=== PATIENT | female | born 1975 | race Caucasian/White ===

== ENCOUNTER 2018-07-30 07:29 | Emergency (ER) | payer BC, MEDICARE ==
[2018-07-30] MEDS ORDERED: Sodium Chloride 0.9% 10 ML Syringe FLUSH PRN (08:04)
[2018-07-30] MEDS ORDERED: Metoclopramide 10 MG/2 ML SDV IVPUSH ONE (08:05)
[2018-07-30] MEDS ORDERED: diphenhydrAMINE 50 MG/ML SDV IVPUSH ONE (08:05)
[2018-07-30] MEDS ORDERED: Sodium Chloride 0.9% 500 ML IV ONE (08:06)
--- NOTE | 2018-07-30 08:16 | EDM.PDOC ---
ED HPI GENERAL MEDICAL PROBLEM - General Chief Complaint: General Stated Complaint: HEADACHE AND NOT FEELING WELL FOR 4 DAYS Time Seen by Provider: 07/30/18 07:49 Source of Information: Reports: Patient, RN Notes Reviewed - History of Present Illness INITIAL COMMENTS - FREE TEXT/NARRATIVE: 43-year-old female with onset of headache 4 days ago. She states this actually woke her up during the night around 4 AM 4 days ago. Headache has continued since that time. She does get relief with ibuprofen but then the headache does come back. As had some mild nausea with this. There's been no vomiting. No cough sore throat fever or chills. She states she typically does not get headaches so this is unusual for her. He describes this as an achy and pressure type feeling more so left and posterior aspect of her head. She does have history of breast cancer. She has had appropriate treatment and has been cancer free. She has had no focal weakness, speech or vision difficulty. Generalized Pain Score (Numeric/FACES): 3 - Related Data Allergies Allergy/AdvReac Type Severity Reaction Status Date / Time azithromycin Allergy Severe Difficulty Verified 07/30/18 07:58 Swallowing Home Meds: Home Meds Adalimumab [Humira] 40 mg SQ WEEKLY 07/30/18 [History] Citalopram [Citalopram HBr] 20 mg PO DAILY 07/30/18 [History] Gabapentin [Neurontin] 300 mg PO QPM 07/30/18 [History] Past Medical History Psychiatric History: Reports: Anxiety, Depression Oncologic (Cancer) History: Reports: Breast Social & Family History - Tobacco Use Smoking Status *Q: Never Smoker Second Hand Smoke Exposure: No - Caffeine Use Caffeine Use: Reports: None - Recreational Drug Use Recreational Drug Use: No ED ROS GENERAL - Review of Systems Review Of Systems: See Below Constitutional: Denies: Fever, Chills, Diaphoresis HEENT: Denies: Ear Pain, Sinus Problem, Throat Pain Respiratory: Denies: Shortness of Breath Cardiovascular: Denies: Chest Pain GI/Abdominal: Reports: Nausea. Denies: Abdominal Pain, Vomiting Musculoskeletal: Reports: Neck Pain (Mild intermittent). Denies: Shoulder Pain , Arm Pain, Back Pain Skin: Reports: No Symptoms Neurological: Reports: Headache. Denies: Dizziness, Numbness, Tingling, Trouble Speaking, Difficulty Walking, Weakness ED EXAM, GENERAL - Physical Exam Exam: See Below General Appearance: Alert, Mild Distress Throat/Mouth: Normal Inspection, Normal Oropharynx Head: Atraumatic. No: Facial Swelling Neck: Supple, Full Range of Motion, Lymphadenopathy (L), Lymphadenopathy (R) ( Mild anterior) Respiratory/Chest: No Respiratory Distress ( mild anterior), Lungs Clear, Normal Breath Sounds Cardiovascular: Regular Rate, Rhythm Extremities: Normal Inspection, Normal Range of Motion Neurological: Alert, Oriented, No Motor/Sensory Deficits, Other (Finger to nose testing normal) Skin Exam: Warm, Dry, Normal Color Course - Vital Signs Last Recorded V/S: Last Vital Signs Temp 97.4 F 07/30/18 07:41 Pulse 99 07/30/18 07:41 Resp 17 07/30/18 07:41 BP 130/84 07/30/18 07:41 Pulse Ox 0 L 07/30/18 07:41 - Orders/Labs/Meds Orders: Active Orders 24 hr Category Date Time Status Peripheral IV Care [RC] . DIRECTED Care 07/30/18 08:05 Active Head wo Cont [CT] Stat Exams 07/30/18 08:04 Taken Sodium Chloride 0.9% [Saline Flush] Med 07/30/18 08:04 Active 10 ml FLUSH ASDIRECTED PRN Peripheral IV Insertion Adult [OM.PC] Stat Oth 07/30/18 08:04 Ordered Medication Orders Sodium Chloride (Saline Flush) 10 ml FLUSH ASDIRECTED PRN PRN Reason: Keep Vein Open Last Admin: 07/30/18 08:22 Dose: 10 ml Meds: Medications Generic Name Dose Route Start Last Admin Trade Name Freq PRN Reason Stop Dose Admin Sodium Chloride 10 ml 07/30/18 08:04 07/30/18 08:22 Saline Flush FLUSH 10 ml ASDIRECTED PRN Administration Keep Vein Open Discontinued Medications Generic Name Dose Route Start Last Admin Trade Name Freq PRN Reason Stop Dose Admin Diphenhydramine HCl 25 mg 07/30/18 08:05 07/30/18 08:21 Benadryl IVPUSH 07/30/18 08:06 25 mg ONETIME ONE Administration Sodium Chloride 500 mls @ 999 mls/hr 07/30/18 08:06 07/30/18 08:21 Normal Saline IV 07/30/18 08:36 999 mls/hr .BOLUS ONE Administration Ketorolac Tromethamine 30 mg 07/30/18 09:00 07/30/18 09:02 Toradol IVPUSH 30 mg ONETIME DUSTY Administration Ketorolac Tromethamine 30 mg 07/30/18 09:02 07/30/18 09:03 Toradol IVPUSH 07/30/18 09:03 Not Given ONETIME ONE Metoclopramide HCl 5 mg 07/30/18 08:05 07/30/18 08:21 Reglan IVPUSH 07/30/18 08:06 5 mg ONETIME ONE Administration - Re-Assessments/Exams Free Text/Narrative Re-Assessment/Exam: 07/30/18 09:05. CT of head looks good. We treated initially with Reglan, Benadryl IV, [place] Toradol 30 mg IV. 09;35. She does feel tremendously better, headache is mostly gone, discharge instructions as documented. Departure - Departure Time of Disposition: 09:37 Disposition: Home, Self-Care 01 Condition: Fair Clinical Impression: Headache Qualifiers: Headache type: unspecified Headache chronicity pattern: acute headache Intractability: not intractable Qualified Code(s): R51 - Headache - Discharge Information Referrals: Karena Gomes NP [Primary Care Provider] - Forms: ED Department Discharge Additional Instructions: Rest, may continue to take Advil or ibuprofen every 6-8 hours if needed for further headache. He may take Tylenol in between doses for further pain relief if needed. Follow-up with your regular medical provider if this does not continue to resolve as expected. Return to ED as needed. - My Orders Last 24 Hours: My Active Orders 07/30/18 08:04 Head wo Cont [CT] Stat Sodium Chloride 0.9% [Saline Flush] 10 ml FLUSH ASDIRECTED PRN Peripheral IV Insertion Adult [OM.PC] Stat 07/30/18 08:05 Peripheral IV Care [RC] . DIRECTED - Assessment/Plan Last 24 Hours: My Active Orders 07/30/18 08:04 Head wo Cont [CT] Stat Sodium Chloride 0.9% [Saline Flush] 10 ml FLUSH ASDIRECTED PRN Peripheral IV Insertion Adult [OM.PC] Stat 07/30/18 08:05 Peripheral IV Care [RC] . DIRECTED
[2018-07-30] MEDS ORDERED: Ketorolac 30 MG/ML SDV IVPUSH SCH (09:00)
[2018-07-30] MEDS ORDERED: Ketorolac 30 MG/ML SDV IVPUSH ONE (09:02)
--- NOTE | 2018-07-30 13:51 | CT ---
Head CT Technique: Multiple axial sections through the brain were obtained. Intravenous contrast was not utilized. Comparison: No prior intracranial imaging is available. Findings: Ventricles along with basal cisterns and sulci over the convexities are within normal limits for the patient's age. Slight diminished density is noted within the right temporal lobe inferiorly. This could be artifact but further imaging will be recommended. No other abnormal parenchymal densities are seen. No evidence of intracranial hemorrhage. No midline shift or mass effect is seen. Bone window settings were reviewed which shows no acute calvarial abnormality. Visualized sinuses are clear. Impression: 1. Questionable diminished density within the inferior right temporal lobe. This may be artifact but MRI is strongly suggested to completely exclude abnormality. This can be done non-emergently. 2. No intracranial hemorrhage is seen. Questionable disagree with preliminary report issued by [facility], report finalized on 07/30/18, 10:07 AM Central Time, code 2 Diagnostic code #9
== END 2018-07-30 09:56 | disposition home or self-care (01) ==
LOC: JD.ED 07:29
DX: R51 Headache (principal); F41.9 Anxiety disorder, unspecified; F32.9 Major depressive disorder, single episode, unspecified; Z88.1 Allergy status to other antibiotic agents; Z79.899 Other long term (current) drug therapy
CPT/HCPCS: 70450; 96361; 96374; 96375; 99284; J1200; J1885; J2765; J7040

== ENCOUNTER 2023-08-04 23:22 | Emergency (ER) | payer BC, MEDICARE ==
[2023-08-04] MEDS ORDERED: Metoclopramide 10 MG/2 ML SDV IVPUSH ONE (23:43)
[2023-08-04] MEDS ORDERED: HYDROmorphone 0.5 MG/0.5 ML Syringe IVPUSH ONE (23:43)
[2023-08-04] MEDS ORDERED: Ketorolac 30 MG/ML SDV IVPUSH SCH (23:45)
[2023-08-04] MEDS ORDERED: Sodium Chloride 0.9% 1,000 ML IV SCH (23:45)
[2023-08-05 00:09] LABS: APPEARANCE,URINE CLEAR (Clear); BILIRUBIN,URINE NEGATIVE (Negative); COLOR,URINE YELLOW (Yellow); GLUCOSE,URINE NEGATIVE (Negative); KETONES,URINE NEGATIVE (Negative); LEUKOCYTE ESTERASE,URINE TRACE (Negative); NITRITE,URINE NEGATIVE (Negative); OCCULT BLOOD,URINE TRACE-INTACT (Negative); PH,URINE 6.5 (5.0-8.0); PROTEIN,URINE NEGATIVE (Negative); UROBILINOGEN,URINE 0.2 (0.2-1.0)
[2023-08-05 00:25] LABS: BACTERIA,URINE NOT SEEN /hpf (FEW); EPITHELIAL CELLS,URINE NOT SEEN /hpf (0-5); MUCUS,URINE NOT SEEN /hpf (FEW); RBC,URINE 0-5 /hpf (0-5); WBC,URINE 0-5 /hpf (0-5)
[2023-08-05] MEDS ORDERED: Orphenadrine 100 MG Tab.ER PO ONE (01:05)
== END 2023-08-05 01:39 | disposition home or self-care (01) ==
LOC: JD.ED 23:22
DX: R10.9 Unspecified abdominal pain (principal); M54.50 Low back pain, unspecified
CPT/HCPCS: 74176; 81001; 96374; 96375; 99284; A9270; J1170; J1885; J2765; J7030